=== PATIENT | female | born 1960 | race Caucasian/White ===

== ENCOUNTER → 2017-11-20 | Outpatient (CLI) | payer BC ==
--- NOTE | 2017-11-21 09:19 | XR ---
EXAMINATION TYPE: XR ankle complete LT DATE OF EXAM: 11/20/2017 COMPARISON: NONE HISTORY: Pain TECHNIQUE: 3 views of the left ankle are submitted for evaluation. FINDINGS: Focal lucency involving the tip of the lateral malleolus with adjacent soft tissue swelling . Fracture fragment however is not visualized with certainty. In the appropriate clinical setting ost eomyelitis is difficult to exclude. Strict clinical correlation advised. IMPRESSION: 1. Focal nonspecific lucency lateral malleolus as noted.
--- NOTE | 2017-11-21 09:45 | XR ---
EXAMINATION TYPE: XR foot complete LT DATE OF EXAM: 11/20/2017 CLINICAL HISTORY: pain TECHNIQUE: Frontal, lateral and oblique images of the left foot are obtained. COMPARISON: None. FINDINGS: There is no acute fracture/dislocation evident. Hallux valgus deformity great toe. The layla nt spaces appear within normal limits. The overlying soft tissue appears unremarkable. IMPRESSION: There is no acute fracture or dislocation. ICD 10 NO FRACTURE, INITIAL EVALUATION
== END | disposition home or self-care (01) ==
LOC: RADXRMAIN 17:19
PROVIDERS: ATTEND Internal Medicine
DX: M79.672 Pain in left foot (principal)